=== PATIENT | male | born 1955 | race Caucasian/White ===

== ENCOUNTER 2017-11-20 16:04 | Emergency (ER) | payer BC ==
--- NOTE | 2017-11-20 16:45 | ERNOTE ---
Time Seen by Provider: 11/20/17 16:16 Stated Complaint: CHEST CONGESTION, COUGH Presenting Symptoms:: cough, sore throat Source: patient Exam Limitations: clinical condition - patient complains of approximately 24 hours of fever bodyaches and cough with a sore throat, he rates the difficulty as moderate severity Immunizations: IMMUNIZATION HX Immunizations Up to Date Yes History of Influenza Vaccine No Hx Pneumococcal Vaccination No Allergies/Adverse Reactions: Allergies No Known Allergies Allergy (Verified 08/08/15 11:32) Home Medications: HOME MEDICATIONS Pantoprazole Sodium [Protonix] 40 mg PO DAILY #30 tablet. 05/27/15 [Last Taken 08/08/15] Cholecalciferol (Vitamin D3) [Vitamin D] 50,000 unit PO DAILY 08/08/15 [Last Taken 08/08/15] Folic Acid 1 mg PO DAILY 08/08/15 [Last Taken Unknown] Potassium 10 meq PO DAILY 08/08/15 [Last Taken 08/08/15] Rifaximin [Xifaxan] 550 mg PO DAILY 08/08/15 [Last Taken 08/08/15] Doxycycline Monohydrate 100 mg PO BID #20 tablet 11/20/17 [Last Taken Unknown] Pregabalin [Lyrica] 100 mg PO TID 11/20/17 [Last Taken Unknown] Propranolol HCl [Inderal] 10 mg PO BID 11/20/17 [Last Taken Unknown] Spironolactone [Aldactone] 25 mg PO DAILY 11/20/17 [Last Taken Unknown] - History of Present Ilness Timing: constant Severity: moderate Frequency/Possible Cause: Reports: no prior episodes Modifying Factors - Improves: Reports: nothing Modifying Factors - Worsens: Reports: nothing Associated Symptoms: Reports: cough, muscle aches Review of Systems - Review of Systems Constitutional: Present: See HPI EYE: Present: no symptoms reported ENT: Present: sore throat Respiratory: Present: cough Cardiology: Present: no symptoms reported Gastrointestinal/Abdominal: Present: no symptoms reported Genitourinary: Present: no symptoms reported Musculoskeletal: Present: no symptoms reported Skin: Present: no symptoms reported Neurological: Present: no symptoms reported Endocrine: Present: no symptoms reported Hematologic/Lymphatic: Present: no symptoms reported Psych: Present: no symptoms reported - Patient's Past Medical History Patient History - Medical: Anemia, Alcohol Abuse, Anxiety, Headache Patient History - Cardiac/Respiratory: No pertinent hx Patient History - Cancer: No Hx of Cancer Patient History - Surgical Procedures: Colonoscopy, EGD Patient History - Other: None - Family History Mother Family History - Medical: Family History - Cardiac/Respiratory: No pertinent hx Father Family History - Medical: Family History - Cardiac/Respiratory: No pertinent hx Brother Family History - Medical: Alcohol Abuse, Diabetes Type 2 - Social History Living Situations: home Abuse History: No History of abuse Psych History: No pertinent hx Smoking Status: Current every day smoker Have you smoked in the past 12 months: Yes Do you dip or chew tobacco: No Alcohol Use: sober Drug Use: none - Immunizations Immunizations Up to Date: Yes Hx Pneumococcal Vaccination: No History of Influenza Vaccine: No Physical Exam - Physical Exam General Appearance: Present: wd/wn, alert, moderate distress Head Exam: Present: normal inspection, no evidence of injury Eye Exam: Normal inspection: bilateral, PERRL: bilateral Ears, Nose, Throat: Present: pharyngeal erythema - cobblestone in appearance Neck: Present: normal inspection, nontender Respiratory: Present: no respiratory distress, no accessory muscle use, chest nontender, other - fine coarse breath sounds Cardiovascular/Chest: Present: regular rate, rhythm, no murmur, normal peripheral pulses Gastrointestinal/Abdominal: Present: normal bowel sounds, nontender, nondistended, soft, no organomegaly Rectal Exam: Present: deferred Back Exam: Present: normal inspection, normal range of motion Extremity Exam: Present: normal inspection, non-tender, no edema, normal range of motion Neurological Exam: Present: alert, oriented, normal mood/affect Skin Exam: Present: normal color, warm/dry Lymphatic Exam: Present: no adenopathy ED Progress - Results and Orders Patient's Lab Results:: I have reviewed the patient's lab results. - Vital Signs Patient's Vital Signs:: I have reviewed the patient's vital signs. Vital Signs: Vital Signs 11/20/17 16:16 Temperature 38.1 C H Pulse Rate 87 Respiratory 19 Rate Blood Pressure 116/74 O2 Sat by Pulse 96 Oximetry - X-Ray X-Ray #1 X-Ray: chest Interpretation: Reviewed by me - Progress/Reassessment Chief Complaint: Upper Respiratory Symptoms Plan - Plan Plan: Patient appears to have a upper respiratory infection and will be treated with doxycycline and he will follow-up with his own family doctor as needed. Departure Clinical Impression: Upper respiratory infection Qualifiers: URI type: unspecified viral URI Qualified Code(s): J06.9 - Acute upper respiratory infection, unspecified - Departure Disposition: Home self-care Condition: Good Instructions: Upper Respiratory Infection, Adult, [place] Referrals: Janie Ambriz MD [Primary Care Provider] - Prescriptions: Doxycycline Monohydrate 100 mg PO BID #20 tablet
[2017-11-20 17:55] VITALS: BP 126/73
== END 2017-11-20 17:52 | disposition home or self-care (01) ==
LOC: ER 16:04
DX: D64.9 Anemia, unspecified; F17.210 Nicotine dependence, cigarettes, uncomplicated; F41.9 Anxiety disorder, unspecified; J06.9 Acute upper respiratory infection, unspecified; R51 Headache

== ENCOUNTER 2017-11-25 09:59 | Observation (INO) | payer BC ==
[2017-11-25] MEDS ORDERED: predniSONE 20 MG TABLET PO ONE (10:19)
[2017-11-25] MEDS ORDERED: ALBUTEROL SULFATE/IPRATROPIUM 3 ML NEBU IH ONE ×2 (10:19→10:28)
--- NOTE | 2017-11-25 10:24 | ERNOTE ---
Time Seen by Provider: 11/25/17 10:13 Stated Complaint: URI Presenting Symptoms:: cough, other - shortness of breath Source: patient Exam Limitations: no limitations Immunizations: IMMUNIZATION HX Immunizations Up to Date Yes History of Influenza Vaccine No Hx Pneumococcal Vaccination No Allergies/Adverse Reactions: Allergies No Known Allergies Allergy (Verified 11/25/17 10:05) Home Medications: HOME MEDICATIONS Pantoprazole Sodium [Protonix] 40 mg PO DAILY #30 tablet. 05/27/15 [Last Taken 08/08/15] Cholecalciferol (Vitamin D3) [Vitamin D] 50,000 unit PO DAILY 08/08/15 [Last Taken 08/08/15] Folic Acid 1 mg PO DAILY 08/08/15 [Last Taken Unknown] Potassium 10 meq PO DAILY 08/08/15 [Last Taken 08/08/15] Rifaximin [Xifaxan] 550 mg PO BID 08/08/15 [Last Taken 08/08/15] Doxycycline Monohydrate 100 mg PO BID #20 tablet 11/20/17 [Last Taken Unknown] Pregabalin [Lyrica] 100 mg PO TID 11/20/17 [Last Taken Unknown] Propranolol HCl [Inderal] 10 mg PO BID 11/20/17 [Last Taken Unknown] Spironolactone [Aldactone] 25 mg PO DAILY 11/20/17 [Last Taken Unknown] - History of Present Ilness Narrative: Patient seen by me 5 days ago and a flu test was negative and a chest x-ray was negative as well. Patient was started on doxycycline at that time and he has failed to improve. He still complains of shortness of breath, cough and wheezing. He rates his overall symptoms as at least moderate in severity. Timing: constant Severity: moderate, severe Frequency/Possible Cause: Reports: occasional episodes Modifying Factors - Improves: Reports: nothing Modifying Factors - Worsens: Reports: other - smoking Associated Symptoms: Reports: cough, shortness of breath Prior Treatment: Reports: recently seen, treated by physician, currently on antibiotics Review of Systems - Review of Systems Constitutional: Present: See HPI EYE: Present: no symptoms reported ENT: Present: no symptoms reported Respiratory: Present: See HPI, shortness of breath, cough, wheezing Cardiology: Present: no symptoms reported Gastrointestinal/Abdominal: Present: no symptoms reported Genitourinary: Present: no symptoms reported Musculoskeletal: Present: no symptoms reported Skin: Present: no symptoms reported Neurological: Present: no symptoms reported Endocrine: Present: no symptoms reported Hematologic/Lymphatic: Present: no symptoms reported Psych: Present: no symptoms reported - Patient's Past Medical History Patient History - Medical: Anemia, Alcohol Abuse, Anxiety, Headache Patient History - Cardiac/Respiratory: No pertinent hx Patient History - Cancer: No Hx of Cancer Patient History - Surgical Procedures: Colonoscopy, EGD Patient History - Other: None - Family History Mother Family History - Medical: Family History - Cardiac/Respiratory: No pertinent hx Father Family History - Medical: Family History - Cardiac/Respiratory: No pertinent hx Brother Family History - Medical: Alcohol Abuse, Diabetes Type 2 - Social History Living Situations: home Abuse History: No History of abuse Psych History: No pertinent hx Alcohol Use: none Drug Use: none - Immunizations Immunizations Up to Date: Yes Hx Pneumococcal Vaccination: No History of Influenza Vaccine: No Physical Exam - Physical Exam General Appearance: Present: wd/wn, alert, moderate distress Head Exam: Present: normal inspection, no evidence of injury Eye Exam: Normal inspection: bilateral, PERRL: bilateral Ears, Nose, Throat: Present: normal ENT inspection, H, normal pharynx Neck: Present: normal inspection, nontender Respiratory: Present: no accessory muscle use, chest nontender, respiratory distress, wheezing, other - course breath sounds heard throughout Cardiovascular/Chest: Present: regular rate, rhythm, no murmur, normal peripheral pulses Gastrointestinal/Abdominal: Present: normal bowel sounds, nontender, nondistended, soft, no organomegaly Rectal Exam: Present: deferred Back Exam: Present: normal inspection, normal range of motion Extremity Exam: Present: normal inspection, non-tender, no edema, normal range of motion Neurological Exam: Present: alert, oriented, normal mood/affect Skin Exam: Present: normal color, warm/dry Lymphatic Exam: Present: no adenopathy ED Progress - Results and Orders Patient's Lab Results:: I have reviewed the patient's lab results. - Vital Signs Patient's Vital Signs:: I have reviewed the patient's vital signs. Vital Signs: Vital Signs 11/25/17 11/25/17 10:01 10:06 Temperature 36.8 C Pulse Rate 76 75 Respiratory 12 18 Rate Blood Pressure 150/84 O2 Sat by Pulse 94 93 Oximetry - EKG EKG: NSR - X-Ray X-Ray #1 X-Ray: chest Interpretation: Reviewed by me - Progress/Reassessment Chief Complaint: Upper Respiratory Symptoms Plan - Plan Plan: We have attempted 5 days of antibiotics for patient COPD at home and he has failed outpatient treatment. We'll bring him in for more aggressive pulmonary toilet in the form of albuterol nebulizer treatment, IV steroids and the antibiotic of choice for Dr. Ambriz. Departure Clinical Impression: COPD exacerbation - Departure Disposition: Still a patient Condition: Fair Referrals: Janie Ambriz MD [Primary Care Provider] -
[2017-11-25] MEDS ORDERED: predniSONE 20 MG TABLET ONE (10:28)
[2017-11-25 10:36] LABS: Hematocrit 43.2 % (42.0-52.0); Hemoglobin 15.9 gm/dL (13.5-18.0); Mean Cell Volume 88.7 fl (78-100); Mean Corpuscular Hemoglobin 32.6 pg (27-31); Mean Corpuscular Hgb Conc 36.8 g/dl (32-36); Mean Platelet Volume 10.1 fl (6.0-9.5); Neutrophil # 3.9 K/mm3 (1.3-6.0); Neutrophil % 57.1 % (42-75.0); Platelet Count 135 K/mm3 (150-450); Red Blood Count 4.87 M/mm3 (4.7-6.0); Red Cell Distribution Width 12.8 % (11.5-14.0); White Blood Count 6.9 K/mm3 (4.0-10.5)
[2017-11-25 10:56] LABS: ALT 27 U/L (19-67); AST 28 U/L (0-48); Albumin * 4.2 gm/dl (3.4-5.0); Alkaline Phosphatase * 84 U/L (50-170); BUN/Creatinine Ratio 14.2 (9.0-21.6); Bilirubin, Total 1.1 mg/dL (0.0-1.1); Blood Urea Nitrogen 20 mg/dL (6-23); Ca. Corrected For Albumin 8.8 mg/dL (8.4-10.2); Calcium * 9.3 mg/dL (7.9-10.9); Carbon Dioxide 23.1 mmol/L (24-32.6); Chloride 101 mmol/L (97-106); Glucose * 133 mg/dL (70-110); Magnesium 1.9 mg/dL (1.2-2.8); Potassium 4.1 mmol/L (3.4-4.6); Sodium 138 mmol/L (132-142); Total Protein 8.5 gm/dL (6.2-8.2)
[2017-11-25 11:05] LABS: Troponin I Less than 0.017 ng/ml (0.00-0.10)
[2017-11-25] MEDS ORDERED: NORMAL SALINE 1,000 ML IV ONE (11:14)
[2017-11-25] MEDS ORDERED: METHYLPREDNISOLONE SOD SUCC/PF 40 MG/ML VIAL IV ONE (12:48)
--- NOTE | 2017-11-25 16:15 | HP ---
Chief Complaint - Chief Complaint Date of Service: 11/25/17 Time of Service: 16:05 Chief Complaint: Dypsnea/coughing History of Present Illness: Cam Ling, is a 61-year-old white male, with previous medical history of alcoholic liver cirrhosis, abstinent and since 2014, history of ascites due to a alcoholic cirrhosis, history of hepatic encephalopathy, hypertension, peripheral arterial disease, who was admitted on 11/25/2017 because of shortness of breath and coughing. One week prior to admission the patient started having cough productive of whitish phlegm associated with fever and chills. He then started having dyspnea associated with wheezing and so he went to our emergency room 5 days prior to admission . He had a negative CXR and a negative flu test. He was sent home on an antibiotic- doxycycline without nebulizers/inhalers. His coughing, shortness of breath and wheezing did not improve and so he went back to the emergency room today and was admitted for observation. He was given prednisone and DuoNeb breathing treatment. His chest x-ray did not show any acute cardiopulmonary findings but showed evidence of bronchitis /emphysema and changes of COPD . The patient said that he has been a chronic smoker for the last 40 years consuming about 1 pack per day but has never had any COPD attacks in the past. Currently the patient is feeling a little bit better than when he came in. - Patient's Past Medical History Patient History - Medical: Anemia, Alcohol Abuse, Liver Disease Patient History - Cardiac/Respiratory: No pertinent hx, Hypertension, Peripheral Vascular Disease Patient History - Cancer: No Hx of Cancer Patient History - Surgical Procedures: Colonoscopy, EGD Patient History - Other: None - Family History Mother Family History - Medical: Family History - Cardiac/Respiratory: No pertinent hx Family History - Cancer: Breast Father Family History - Medical: Family History - Cardiac/Respiratory: No pertinent hx Family History - Cancer: Lung Brother Family History - Medical: Alcohol Abuse, Diabetes Type 2 - Social History Living Situations: spouse Abuse History: No History of abuse Psych History: No pertinent hx Smoking Status: Current some day smoker Have you smoked in the past 12 months: Yes Do you dip or chew tobacco: No Smoking Start Date: 04/13/76 Patient requests Smoking Cessation Consult: No Initiate information on Smoking Cessation: No Alcohol Use: none Drug Use: none - Immunizations Immunizations Up to Date: Yes Hx Pneumococcal Vaccination: No History of Influenza Vaccine: No Review Of Systems (GEN) - Review of Systems Generalized/Overall Review: Present: Chills, Fever Respiratory: Present: Cough, Shortness of Breath, Wheezing Cardiac: Present: Chest Pain - on coughing. Absent: Edema, Palpitations Abdominal: Absent: Nausea, Vomiting Genitourinary: Absent: Urgency, Frequency Musculoskeletal: Present: Back Pain Immunizations: IMMUNIZATION HX Immunizations Up to Date Yes History of Influenza Vaccine No Hx Pneumococcal Vaccination No Allergies/Adverse Reactions: Allergies Allergy/AdvReac Type Severity Reaction Status Date / Time No Known Allergies Allergy Verified 11/25/17 10:05 Home Medications: HOME MEDICATIONS Pantoprazole Sodium [Protonix] 40 mg PO DAILY #30 tablet. 05/27/15 [Last Taken 08/08/15] Cholecalciferol (Vitamin D3) [Vitamin D] 50,000 unit PO DAILY 08/08/15 [Last Taken 08/08/15] Folic Acid 1 mg PO DAILY 08/08/15 [Last Taken Unknown] Rifaximin [Xifaxan] 550 mg PO BID 08/08/15 [Last Taken 08/08/15] Doxycycline Monohydrate 100 mg PO BID #20 tablet 11/20/17 [Last Taken Unknown] Pregabalin [Lyrica] 100 mg PO TID 11/20/17 [Last Taken Unknown] Propranolol HCl [Inderal] 10 mg PO BID 11/20/17 [Last Taken Unknown] Spironolactone [Aldactone] 25 mg PO DAILY 11/20/17 [Last Taken Unknown] Multivitamin/Iron/Folic Acid [Centrum Adults Tablet] 1 each PO DAILY 11/25/17 [ Last Taken Unknown] Thiamine HCl [Vitamin B-1] 100 mg PO DAILY 11/25/17 [Last Taken Unknown] Exam - Exam Vital Signs: Vital Signs - Last Taken Temp 36.6 C 11/25/17 13:49 Pulse 62 11/25/17 13:49 Resp 18 11/25/17 13:49 BP 137/66 11/25/17 13:49 Pulse Ox 94 11/25/17 12:38 Constitutional: Present: Alert, Oriented x3, Cooperative ENT Exam: Present: hearing grossly normal Eye Exam: bilateral eye: normal inspection, PERRL, EOMI Neck: Present: supple Respiratory: Present: decreased breath sounds, wheezing, No rales Cardiovascular/Chest: Present: regular rate, rhythm, no JVD, no murmur Abdomen: Present: Normal bowel sounds, soft, nontender, nondistended Extremity: Present: no calf tenderness, pedal edema Diagnostic Studies: Laboratory Results WBC 6.9 K/mm3 (4.0-10.5) 11/25/17 10:30 RBC 4.87 M/mm3 (4.7-6.0) 11/25/17 10:30 Hgb 15.9 gm/dL (13.5-18.0) 11/25/17 10:30 Hct 43.2 % (42.0-52.0) 11/25/17 10:30 MCV 88.7 fl (78-100) 11/25/17 10:30 MCH 32.6 pg (27-31) H 11/25/17 10:30 MCHC 36.8 g/dl (32-36) H 11/25/17 10:30 RDW 12.8 % (11.5-14.0) 11/25/17 10:30 Plt Count 135 K/mm3 (150-450) L 11/25/17 10:30 MPV 10.1 fl (6.0-9.5) H 11/25/17 10:30 Immature Gran % (Auto) 0.40 % (0.001-0.429) 11/25/17 10:30 Immature Gran # (Auto) 0.03 K/mm3 (0.000-0.0310) 11/25/17 10:30 Neutrophils % 57.1 % (42-75.0) 11/25/17 10:30 Lymphocytes % 32.6 % (20-51) 11/25/17 10:30 Monocytes % 6.2 % (0.0-9) 11/25/17 10:30 Eosinophils % 3.0 % (0.0-3.0) 11/25/17 10:30 Basophils % 0.7 % (0.0-1.0) 11/25/17 10:30 Nucleated RBC % 0.0 k/mm3 (0-1) 11/25/17 10:30 Neutrophils # 3.9 K/mm3 (1.3-6.0) 11/25/17 10:30 Lymphocytes # 2.3 k/mm3 (1.5-3.5) 11/25/17 10:30 Monocytes # 0.4 k/mm3 (0.0-1.0) 11/25/17 10:30 Eosinophils # 0.2 k/mm3 (0.0-0.7) 11/25/17 10:30 Absolute Basophils 0.1 k/mm3 (0.0-0.1) 11/25/17 10:30 D-Dimer 1.23 mg/L (0.19-0.49) H 11/25/17 10:30 Sodium 138 mmol/L (132-142) 11/25/17 10:30 Plasma Sodium 139 mmol/L (130-142) 11/25/17 10:30 Potassium 4.1 mmol/L (3.4-4.6) 11/25/17 10:30 Chloride 101 mmol/L (97-106) 11/25/17 10:30 Carbon Dioxide 23.1 mmol/L (24-32.6) L 11/25/17 10:30 Anion Gap 18.0 mmol/L (6.8-13.8) H 11/25/17 10:30 BUN 20 mg/dL (6-23) D 11/25/17 10:30 Creatinine 1.41 mg/dL (0.4-1.4) H 11/25/17 10:30 Est GFR (Non-Af Amer) 55 mL/min (60-130) L 11/25/17 10:30 BUN/Creatinine Ratio 14.2 (9.0-21.6) 11/25/17 10:30 Random Glucose 133 mg/dL (70-110) H 11/25/17 10:30 Calcium 9.3 mg/dL (7.9-10.9) 11/25/17 10:30 Calcium Adj for Albumin 8.8 mg/dL (8.4-10.2) 11/25/17 10:30 Magnesium 1.9 mg/dL (1.2-2.8) 11/25/17 10:30 Total Bilirubin 1.1 mg/dL (0.0-1.1) 11/25/17 10:30 AST 28 U/L (0-48) 11/25/17 10:30 ALT 27 U/L (19-67) 11/25/17 10:30 Alkaline Phosphatase 84 U/L (50-170) 11/25/17 10:30 Troponin I Less than 0.017 ng/ml (0.00-0.10) 11/25/17 10:30 Total Protein 8.5 gm/dL (6.2-8.2) H 11/25/17 10:30 Albumin 4.2 gm/dl (3.4-5.0) 11/25/17 10:30 Assessment/Plan - Assessment/Plan (1) COPD exacerbation Assessment: likely due to acut bronchitis. will continue with IV steroids, antibiotics and breathing treatment. will need a PFT as outpatient when he is much better. Problem: Acute (2) PAD (peripheral artery disease) Problem: Chronic (3) Cirrhosis of liver Problem: Chronic Qualifiers: Hepatic cirrhosis type: alcoholic cirrhosis (4) Hypertension Problem: Chronic Qualifiers: Hypertension type: essential hypertension Qualified Code(s): I10 - Essential (primary) hypertension (5) Tobacco abuse Assessment: will give nicotine patch . Problem: Chronic
[2017-11-25] MEDS ORDERED: ALBUTEROL SULFATE 2.5 MG/0.5 ML VIAL.NEB IH PRN (16:18)
[2017-11-25] MEDS ORDERED: cefTRIAXone SODIUM 1,000 MG in DEXTROSE 5 % IN WATER 50 ML IV SCH ×2 (16:30)
[2017-11-25] MEDS ORDERED: NICOTINE 21 MG PATC TD SCH (16:45)
[2017-11-25] MEDS ORDERED: PREGABALIN 50 MG CAPSULE PO SCH (17:00)
[2017-11-25] MEDS: METHYLPREDNISOLONE SOD SUCC 80 MG in WATER FOR INJ.,BACTERIOSTATIC 0 ML IV SCH ×2 (17:31→21:19)
[2017-11-25] MEDS: ALBUTEROL SULFATE/IPRATROPIUM 3 ML NEBU IH SCH ×2 (18:01→22:07)
[2017-11-25] MEDS ORDERED: PROPRANOLOL HCL 10 MG TABLET PO SCH (21:00)
[2017-11-25] MEDS ORDERED: Rifaximin [Xifaxan] 550 MG PO SCH (21:00)
[2017-11-26] MEDS: ALBUTEROL SULFATE/IPRATROPIUM 3 ML NEBU IH SCH ×2 (02:04→06:12)
[2017-11-26] MEDS: METHYLPREDNISOLONE SOD SUCC 80 MG in WATER FOR INJ.,BACTERIOSTATIC 0 ML IV SCH (04:27)
[2017-11-26] MEDS ORDERED: ACETAMINOPHEN 325 MG TABLET PO PRN (06:29)
[2017-11-26 06:41] VITALS: BP 145/73
[2017-11-26] MEDS ORDERED: PANTOPRAZOLE SODIUM 40 MG TABLET.EC PO SCH (07:00)
--- NOTE | 2017-11-26 07:38 | DS ---
(1) COPD exacerbation Problem: Acute (2) PAD (peripheral artery disease) Problem: Chronic (3) Cirrhosis of liver Problem: Chronic Qualifiers: Hepatic cirrhosis type: alcoholic cirrhosis (4) Hypertension Problem: Chronic Qualifiers: Hypertension type: essential hypertension Qualified Code(s): I10 - Essential (primary) hypertension (5) Tobacco abuse Problem: Chronic Description of Stay: Cam Ling, is a 61-year-old white male, with previous medical history of alcoholic liver cirrhosis, abstinent and since 2014, history of ascites due to a alcoholic cirrhosis, history of hepatic encephalopathy, hypertension, peripheral arterial disease, who was admitted on 11/25/2017 because of shortness of breath and coughing. One week prior to admission the patient started having cough productive of whitish phlegm associated with fever and chills. He then started having dyspnea associated with wheezing and so he went to our emergency room 5 days prior to admission . He had a negative CXR and a negative flu test. He was sent home on an antibiotic- doxycycline without nebulizers/inhalers. His coughing, shortness of breath and wheezing did not improve and so he went back to the emergency room today and was admitted for observation. He was given prednisone and DuoNeb breathing treatment. His chest x-ray did not show any acute cardiopulmonary findings but showed evidence of bronchitis /emphysema and changes of COPD . The patient said that he has been a chronic smoker for the last 40 years consuming about 1 pack per day but has never had any COPD attacks in the past. He was continued on Duoneb RTC q 4 hours, IV solumedrol and and IV Rocephin. He is feeling better. Will discharge him today and follow up with me this Saturday. Procedures Performed: none Discharge Disposition: Home self care Disposition: Home self-care Condition: Stable Discharge Activity: Activity as tolerated Discharge Diet: Low salt Referrals: Janie Ambriz MD [Primary Care Provider] - Additional Patient Instructions (free text): Follow up with me this Saturday. Prescriptions (Any new or edited meds): Acetaminophen [Tylenol] 650 mg PO Q6H PRN #30 tablet PRN Reason: Pain/Fever Albuterol Sulfate [Ventolin HFA] 1 puff IH Q6H PRN #1 inhaler PRN Reason: Shortness Of Breath/Wheezing Albuterol Sulfate/Ipratropium [Duoneb 2.5-0.5MG/3ML Soln] 3 ml IH QID #30 nebu Levofloxacin [Levaquin] 500 mg PO DAILY #7 tablet Nicotine [Nicoderm] 21 mg TD Q24H #30 patch.td24 predniSONE [Prednisone] 2 tab PO DAILY #14 tab Complete Home Medications List: Complete Home Medication List: Pantoprazole Sodium [Protonix] 40 mg PO DAILY #30 tablet. 05/27/15 Folic Acid 1 mg PO DAILY 08/08/15 Rifaximin [Xifaxan] 550 mg PO BID 08/08/15 Doxycycline Monohydrate 100 mg PO BID #20 tablet 11/20/17 Pregabalin [Lyrica] 100 mg PO TID 11/20/17 Propranolol HCl [Inderal] 10 mg PO BID 11/20/17 Spironolactone [Aldactone] 25 mg PO DAILY 11/20/17 Cholecalciferol (Vitamin D3) [Vitamin D3] 10,000 unit PO DAILY 11/25/17 Multivitamin/Iron/Folic Acid [Centrum Adults Tablet] 1 each PO DAILY 11/25/17 Thiamine HCl [Vitamin B-1] 100 mg PO DAILY 11/25/17 Acetaminophen [Tylenol] 650 mg PO Q6H PRN #30 tablet 11/26/17 Albuterol Sulfate [Ventolin HFA] 1 puff IH Q6H PRN #1 inhaler 11/26/17 Albuterol Sulfate/Ipratropium [Duoneb 2.5-0.5MG/3ML Soln] 3 ml IH QID #30 nebu 11/26/17 Levofloxacin [Levaquin] 500 mg PO DAILY #7 tablet 11/26/17 Nicotine [Nicoderm] 21 mg TD Q24H #30 patch.td24 11/26/17 predniSONE [Prednisone] 2 tab PO DAILY #14 tab 11/26/17
[2017-11-26] MEDS ORDERED: THIAMINE HCL 100 MG TABLET PO SCH (09:00)
[2017-11-26] MEDS ORDERED: SPIRONOLACTONE 25 MG TABLET PO SCH (09:00)
[2017-11-26] MEDS ORDERED: CHOLECALCIFEROL 5,000 UNIT TABLET PO SCH (09:00)
[2017-11-26] MEDS ORDERED: MULTIVITAMIN/IRON/FOLIC ACID 1 TAB TABLET PO SCH (09:00)
[2017-11-26] MEDS ORDERED: FOLIC ACID 1 MG TABLET PO SCH (09:00)
== END 2017-11-26 09:25 | disposition home or self-care (01) ==
LOC: ER 09:59 → MS 12:49
PROVIDERS: ADMIT Internal Medicine; ATTEND Internal Medicine
DX: J44.1 Chronic obstructive pulmonary disease with (acute) exacerbation (principal); J20.9 Acute bronchitis, unspecified; F17.210 Nicotine dependence, cigarettes, uncomplicated; I10 Essential (primary) hypertension; I73.9 Peripheral vascular disease, unspecified; K70.30 Alcoholic cirrhosis of liver without ascites; Z68.29 Body mass index [BMI] 29.0-29.9, adult
CPT/HCPCS: 36415; 71046; 71275; 80053; 83735; 84484; 85025; 85379; 93005; 94640; 96374; 96376; G0378